=== PATIENT | female | born 1990 | race Caucasian/White ===

== ENCOUNTER 2021-05-27 17:44 | Emergency (ER) | payer OTHER ==
[~2021-05-27] VITALS: Ht 154.9 cm; Wt 59.1 kg
[2021-05-27] MEDS ORDERED: LORazepam 2 mg/ml vial IV ONE (17:55)
[2021-05-27] MEDS ORDERED: magnesium 2GM in 50ml NS 50 ML IV ONE (17:55)
[2021-05-27] MEDS ORDERED: normal saline 1000ML IV soln IVB ONE (17:55)
[2021-05-27 18:16] LABS: BASOPHILS % (AUTO) 0.9 % (0-1); EOSINOPHILS # (AUTO) 0.1 X10'3 (0-0.9); EOSINOPHILS % (AUTO) 2.6 % (0-6); HEMATOCRIT 34.6 % (35.0-45.0); HEMOGLOBIN 11.8 g/dl (12.0-16.0); LYMPHOCYTES # (AUTO) 1.2 X10'3 (1.1-4.8); LYMPHOCYTES % (AUTO) 23.8 % (21-51); MEAN CORPUSCULAR HEMOGLOBIN 32.4 PG (27.0-31.0); MEAN CORPUSCULAR HGB CONC 34.1 g/dL (33.0-36.5); MEAN CORPUSCULAR VOLUME 95.2 FL (78-98); MEAN PLATELET VOLUME 8.5 FL (7.4-10.4); MONOCYTES # (AUTO) 0.5 X10'3 (0-0.9); MONOCYTES % (AUTO) 9.6 % (2-12); NEUTROPHILS # (AUTO) 3.3 X10'3 (1.8-7.7); NEUTROPHILS % (AUTO) 63.1 % (42-75); PLATELET COUNT 108 X10'3 (140-440); RED BLOOD COUNT 3.63 X10'6 (4.20-5.60); WHITE BLOOD COUNT 5.2 X10'3 (4.5-11.0)
[2021-05-27 18:32] LABS: ALANINE AMINOTRANSFERASE 28 U/L (12-78); ALBUMIN 3.2 G/DL (3.4-5.0); ALKALINE PHOSPHATASE 97 IU/L (46-116); ANION GAP 11 (8-16); ASPARTATE AMINO TRANSFERASE 32 U/L (10-37); BILIRUBIN,TOTAL 0.1 MG/DL (0.1-1.0); BLOOD UREA NITROGEN 8 MG/DL (7-18); BUN/CREATININE RATIO 9.4 (6.6-38.0); CHLORIDE 111 MMOL/L (99-107); CREATININE 0.85 MG/DL (0.40-0.90); GLUCOSE 103 MG/DL (70-104); POTASSIUM 3.6 MMOL/L (3.5-5.1); SODIUM 147 MMOL/L (135-145); TOTAL CARBON DIOXIDE 25.4 MMOL/L (24-32); TOTAL PROTEIN 6.4 G/DL (6.4-8.2); eGFR 80 ML/MIN
[2021-05-27 18:36] LABS: ETHANOL 0.333 GM/DL (0.0-0.010)
--- NOTE | 2021-05-27 18:53 | NUR ---
PT AT [facility]. PT VOMITED, RECIEVED VERBAL [facility] FROM DR [facility]
[2021-05-27] MEDS ORDERED: ondansetron/PF 4mg/2ml inj IV ONE (18:55)
[2021-05-27 19:03] LABS: MAGNESIUM 2.3 MG/DL (1.5-2.4)
[2021-05-27 19:54] LABS: CLARITY,URINE CLEAR (Clear); COLOR,URINE YELLOW (Yellow); GLUCOSE, URINE NEGATIVE (Neg); KETONES,URINE NEGATIVE (Neg); LEUKOCYTE ESTERASE ,URINE NEGATIVE (Neg); NITRITES, URINE NEGATIVE (Neg); OCCULT BLOOD,URINE NEGATIVE (Neg); PROTEIN,URINE NEGATIVE (Neg); URINE HCG NEGATIVE (NEG); UROBILINOGEN,URINE 0.2 E.U/dL (0.2-1.0)
[2021-05-27 19:57] LABS: UA COLLECTION TYPE CLN CATCH MIDSTREAM
[2021-05-27 20:11] LABS: URINE AMPHETAMINE SCREEN NEGATIVE (Neg); URINE BARBITUATE SCREEN NEGATIVE (Neg); URINE BENZODIAZEPINES SCREEN POSITIVE (Neg); URINE CANNABINOID SCREEN NEGATIVE (Neg); URINE COCAINE SCREEN NEGATIVE (Neg); URINE METHADONE SCREEN NEGATIVE (Neg); URINE OPIATE SCREEN NEGATIVE (Neg); URINE PHENCYCLIDINE SCREEN NEGATIVE (Neg)
--- NOTE | 2021-05-27 20:17 | NUR ---
PT PULLED OUT IV, SEBASTIEN AWARE THAT PT RECIEVED PARTIAL DOSE OF MAGNESIUM AND OK WITH IT.
[2021-05-27] MEDS ORDERED: GABA300C PO ×2 (20:23)
[2021-05-27 20:24] VITALS: BP 110/67
== END 2021-05-27 20:28 | disposition home or self-care (01) ==
LOC: ER 17:46
DX: F10.129 Alcohol abuse with intoxication, unspecified (principal); Y90.9 Presence of alcohol in blood, level not specified
CPT/HCPCS: 36415; 80053; 80305; 80320; 81003; 81025; 83735; 85025; 96361; 96365; 96375; 99284; J2060; J2405; J3475; J7030

== ENCOUNTER 2021-05-28 08:30 | Emergency (ER) | payer MEDICAID, OTHER ==
[~2021-05-28] VITALS: Ht 154.9 cm; Wt 68.2 kg
[~2021-05-28 08:30] MED LIST: GABA300C PO
--- NOTE | 2021-05-28 08:47 | NUR ---
pt assisted to bedside commode. output over 1100cc. pt unsteady with ambulation
[2021-05-28 09:04] VITALS: BP 97/54
[2021-05-28] MEDS ORDERED: thiamine inj. 100 MG in normal saline 100ml IV soln 99 ML IV ONE (09:20)
[2021-05-28] MEDS ORDERED: normal saline 1000ML IV soln IVB ONE (09:20)
== END 2021-05-28 11:01 | disposition home or self-care (01) ==
LOC: ER 08:30
DX: F10.20 Alcohol dependence, uncomplicated (principal); R51.9 Headache, unspecified; R09.89 Other specified symptoms and signs involving the circulatory and respiratory systems; J02.9 Acute pharyngitis, unspecified; R27.0 Ataxia, unspecified; G40.909 Epilepsy, unspecified, not intractable, without status epilepticus; Z79.899 Other long term (current) drug therapy; Z72.89 Other problems related to lifestyle; Z59.00 Homelessness unspecified; Y90.8 Blood alcohol level of 240 mg/100 ml or more
CPT/HCPCS: 36415; 80320; 96365; 99284; J3411; J3490; J7030